=== PATIENT | female | born 1965 | race Two or more races ===

== ENCOUNTER 2017-05-29 17:11 | Emergency (ER) | payer OTHER ==
[~2017-05-29] VITALS: Ht 167.6 cm; Wt 63.5 kg
[2017-05-29] MEDS ORDERED: CLONAZEPAM1 GM (17:32)
== END 2017-05-30 01:04 | disposition home or self-care (01) ==
LOC: ER 17:11
DX: R31.9 Hematuria, unspecified (principal)